=== PATIENT | male | born 1980 | race Caucasian/White ===

== ENCOUNTER 2016-11-15 20:56 | Emergency (ER) | payer OTHER ==
[~2016-11-15] VITALS: Ht 162.6 cm; Wt 64.5 kg
[~2016-11-15 20:56] MED LIST: ATENOLOL25 MG PO; BACLOFEN10 MG PO; CARISOPRODOL350 MG PO; CLEOCIN150 MG PO; DILAUDID2 MG PO; FLEXERIL10 MG PO; FLOMAX0.4 MG PO; IBUPROFEN800 MG PO; INDOCIN25 MG PO; KLONOPIN0.5 M1 PO; METOPROLOL TART25 MG PO; MORPHINE SULFAT15 M1 PO; MORPHINE SULFAT30 M2 PO; MOTRIN800 MG PO; NAPROSYN250 MG PO; NOHOMEMEDS; OMEPRAZOLE40 M1 PO; OXYCODONE-APAP1 EAC6; PERCOCET 10/1 TABLET PO; PERCOCET 5/31 TABLET PO; PROTONIX40 MG PO; SOMA350 MG PO; TIZANIDINE HCL4 MG PO; TRAMADOL HCL50 MG PO; TRAZODONE HCL50 MG PO; VICODIN,LORT1 TABLET PO; ZOFRAN ODT4 MG PO
[2016-11-15 22:32] LABS: ADD MIUA? YES; BILIRUBIN NEGATIVE; BLOOD NEGATIVE; COLOR YELLOW ((YELLOW)); GLUCOSE (STRIP) NEGATIVE; KETONES NEGATIVE; LEUKOCYTES LARGE; NITRITE NEGATIVE; PROTEIN (STRIP) 30; SPECIFIC GRAVITY 1.011 (1.000-1.030); UROBILINOGEN 0.2 MG/DL (0.2-1.0)
[2016-11-15 22:37] LABS: BACTERIA RARE /HPF; EPITHELIAL CELLS NONE SEEN /HPF; MUCUS TRACE /LPF; WHITE BLOOD CELLS TNTC /HPF (0-5)
[2016-11-16] MEDS ORDERED: BACTRIM,SEPT1 TABLET PO (00:08)
[2016-11-16 00:17] VITALS: BP 121/85
== END 2016-11-16 00:19 | disposition home or self-care (01) ==
LOC: EME 20:56
PROVIDERS: Physician Assistant
DX: N39.0 Urinary tract infection, site not specified (principal); I10 Essential (primary) hypertension; K21.9 Gastro-esophageal reflux disease without esophagitis; Z87.442 Personal history of urinary calculi; Z88.6 Allergy status to analgesic agent; Z88.0 Allergy status to penicillin; F17.200 Nicotine dependence, unspecified, uncomplicated
CPT/HCPCS: 76870; 81003; 87077; 87086; 87186; 99281; 99283

== ENCOUNTER 2017-07-08 18:09 | Emergency (ER) | payer OTHER ==
[~2017-07-08] VITALS: Ht 165.1 cm; Wt 65.6 kg
[~2017-07-08 18:09] MED LIST changes: +BACTRIM,SEPT1 TABLET PO
[2017-07-08 19:47] LABS: APPEARANCE SL.HAZY ((CLEAR)); BILIRUBIN NEGATIVE; BLOOD MODERATE; COLOR YELLOW ((YELLOW)); GLUCOSE (STRIP) NEGATIVE; KETONES NEGATIVE; LEUKOCYTES MODERATE; NITRITE NEGATIVE; PROTEIN (STRIP) NEGATIVE; SPECIFIC GRAVITY 1.014 (1.000-1.030); UROBILINOGEN 0.2 MG/DL (0.2-1.0)
[2017-07-08 19:54] LABS: BACTERIA RARE /HPF; EPITHELIAL CELLS NONE SEEN /HPF; MUCUS NONE SEEN /LPF; RED BLOOD CELLS TNTC /HPF (0-5); UCUL ADDED? YES; WHITE BLOOD CELLS TNTC /HPF (0-5)
[2017-07-08] MEDS ORDERED: CIPRO500 MG PO (21:48)
[2017-07-08] MEDS ORDERED: NAPROXEN500 MG PO (21:48)
[2017-07-08 22:00] VITALS: BP 155/98
== END 2017-07-08 22:02 | disposition home or self-care (01) ==
LOC: EME 18:09
PROVIDERS: Physician Assistant
DX: N45.1 Epididymitis (principal); N39.0 Urinary tract infection, site not specified; I10 Essential (primary) hypertension; B19.20 Unspecified viral hepatitis C without hepatic coma; J45.909 Unspecified asthma, uncomplicated; F17.200 Nicotine dependence, unspecified, uncomplicated; K21.9 Gastro-esophageal reflux disease without esophagitis; Z88.0 Allergy status to penicillin; Z88.8 Allergy status to other drugs, medicaments and biological substances
CPT/HCPCS: 76870; 81003; 87077; 87086; 87186; 99281; 99284